=== PATIENT | male | born 1935 | race Caucasian/White ===

== ENCOUNTER 2021-10-10 08:16 | Day surgery (SDC) | payer MEDICARE, BC ==
[2021-10-10] MEDS: Polymyxin B/Trimethoprim 10 ML Bottle EYELF SCH ×4 (07:59→12:43)
[2021-10-10] MEDS: Brimonidine 0.2% Ophth Soln 5 ML Bottle EYELF SCH ×4 (08:03→12:43)
[2021-10-10] MEDS: Phenylephrine 2.5% Ophth Soln 2 ML Bot EYELF SCH ×6 (08:06→12:42)
[2021-10-10] MEDS: Tropicamide 1% Ophth Soln 15 ML Bottle EYELF SCH ×4 (08:09→08:46)
[2021-10-10] MEDS: Tetracaine HCl/PF 0.5% 4 ML Bottle EYEBOTH SCH ×3 (08:55→12:42)
[2021-10-10] MEDS: Lidocaine 1% PF 2 ML SDV INJECT SCH ×2 (09:06→12:43)
[2021-10-10] MEDS: Cefuroxime 10 MG/ML SYRINGE EYELF SCH ×2 (09:17→12:43)
[2021-10-10] MEDS: Pilocarpine 4% Ophth Soln 15 ML Bot EYELF SCH ×2 (09:18→12:43)
== END 2021-10-10 09:30 | disposition home or self-care (01) ==
LOC: JD.SDS 08:16
PROVIDERS: ATTEND Ophthalmology
DX: H25.812 Combined forms of age-related cataract, left eye (principal); H21.42 Pupillary membranes, left eye; H21.81 Floppy iris syndrome; I10 Essential (primary) hypertension; H91.90 Unspecified hearing loss, unspecified ear; Z98.890 Other specified postprocedural states; Z87.891 Personal history of nicotine dependence
CPT/HCPCS: 66982; J0697; C1780